=== PATIENT | male | born 1955 | race Caucasian/White ===

== ENCOUNTER → 2018-05-28 | Outpatient (CLI) | payer OTHER ==
--- NOTE | 2018-05-28 15:21 | MR ---
EXAMINATION TYPE: MR brain wo con DATE OF EXAM: 05/28/2018 COMPARISON: NONE HISTORY: Memory loss, autism TECHNIQUE: Multiplanar, multisequence images of the brain and brainstem is performed without IV contrast. FINDINGS: Diffusion weighted images demonstrate no evidence of a recent infarct or other diffusion ab normality. There is no extra-axial fluid collection. Moderate burden nonspecific white matter change is seen throughout the subcortical and periventricular white matter demonstrated as foci of T2/FLAIR hyperintensity with the largest in the left frontal lobe measuring 9 mm. This is measured on axial F LAIR fat-sat image 20. These are all supratentorial other than suspected mild gliosis within the amber . The ventricular system and cisternal spaces are normal in size and appearance. The brain volume is age appropriate. Midline structures demonstrate normal morphology. Incidental note is made of a partially empty sella turcica. The craniocervical junction appears within normal limits. The dural venous sinuses appear pa tent. The globes are intact. There is mild mucosal thickening of the ethmoid, maxillary, and frontal sinuses. The sphenoid sinuses are well aerated. There partial opacification of the left mastoid air c ells. Globes are intact. Major intracranial flow voids are maintained. Left vertebral artery is domin ant. IMPRESSION: 1. Moderate burden nonspecific white matter change. Given the distribution these are favored to repre sent sequela of vasculitis or chronic microangiopathy. 2. No evidence of acute infarct, midline shift or mass effect. 3. Mild pansinusitis with partial opacification of the left mastoid air cells. Correlate with left ma stoid tenderness to exclude mastoiditis.
== END | disposition home or self-care (01) ==
LOC: RADMRIMAIN 14:39
PROVIDERS: ATTEND Nurse Practitioner Acute Care
DX: R90.82 White matter disease, unspecified (principal)
CPT/HCPCS: 70551

== ENCOUNTER 2018-07-01 17:00 | Emergency (ER) | payer OTHER ==
[2018-07-01 17:39] VITALS: TEMP 97.8
[2018-07-01] MEDS ORDERED: LABETALOL 5 MG/ML VIAL MDV IVP STA (19:12)
--- NOTE | 2018-07-01 19:12 | ED ---
General Adult HPI - General Chief complaint: Recheck/Abnormal Lab/Rx Stated complaint: High BP Source: patient Mode of arrival: ambulatory Limitations: no limitations - History of Present Illness Initial comments: Dictation was produced using [employer] dictation software. please excuse any grammatical, word or spelling errors. Chief Complaint: 63-year-old male presents with elevated blood pressure. History of Present Illness: 23-year-old male presents with elevated blood pressure. Today he was at his neurologist office oriented elevated blood pressure. He was extracted come to the emergency department for further evaluation. Patient takes multiple medications for his blood pressure including lisinopril, Dyazide and Coreg. Patient has no other complaints at this time. He denies any pain complaints. Denies any neurologic symptoms. Patient has past medical history of recent discharge from the [facility]. He allegedly had a couple occasions from an overdose incident that happened in February. The ROS documented in this emergency department record has been reviewed and confirmed by me. Those systems with pertinent positive or negative responses have been documented in the HPI. All other systems are other negative and/or noncontributory. - Related Data Home Medications Medication Instructions Recorded Confirmed Aspirin EC [Ecotrin Low Dose] 81 mg PO DAILY 07/01/18 07/01/18 Carvedilol [Coreg] 6.25 mg PO BID 07/01/18 07/01/18 Cholecalciferol (Vitamin D3) 2,000 unit PO DAILY 07/01/18 07/01/18 [Vitamin D3] Folic Acid 1 mg PO DAILY 07/01/18 07/01/18 Hydrochlorothiazide 12.5 mg PO DAILY 07/01/18 07/01/18 LORazepam [Ativan] 0.5 mg PO TID PRN 07/01/18 07/01/18 Lisinopril [Prinivil] 20 mg PO BID 07/01/18 07/01/18 Melatonin 5 mg PO HS 07/01/18 07/01/18 Terazosin HCl 2 mg PO HS 07/01/18 07/01/18 Thiamine [Vitamin B-1] 100 mg PO DAILY 07/01/18 07/01/18 Venlafaxine HCl [Effexor XR] 150 mg PO DAILY 07/01/18 07/01/18 tiZANidine [Zanaflex] 2 mg PO HS 07/01/18 07/01/18 Allergies Allergy/AdvReac Type Severity Reaction Status Date / Time No Known Allergies Allergy Verified 07/01/18 19:03 Review of Systems ROS Statement: Those systems with pertinent positive or pertinent negative responses have been documented in the HPI. ROS Other: All systems not noted in ROS Statement are negative. Past Medical History Past Medical History: Hypertension Additional Past Medical History / Comment(s): carpal tunnel, overdose History of Any Multi-Drug Resistant Organisms: None Reported Past Psychological History: Anxiety, Depression Smoking Status: Current every day smoker Past Alcohol Use History: None Reported Past Drug Use History: None Reported General Exam - General Exam Comments Initial Comments: PHYSICAL EXAM: General Impression: Alert and oriented x3, not in acute distress HEENT: Normocephalic atraumatic, extra-ocular movements intact, pupils equal and reactive to light bilaterally, mucous membranes moist. Cardiovascular: Heart regular rate and rhythm, S1&S2 audible, no murmurs, rubs or gallops Chest: Lungs clear to auscultation bilaterally, no rhonchi, no wheeze, no rales Abdomen: Bowel sounds present, abdomen soft, non-tender, non-distended, no organomegaly Musculoskeletal: Pulses present and equal in all extremities, no peripheral edema Motor: Power 5/5 bilaterally, no focal deficits noted Neurological: CN II-XII grossly intact, no focal motor or sensory deficits noted Skin: Intact with no visualized rashes Psych: Normal affect and mood Limitations: no limitations Course Vital Signs 07/01/18 07/01/18 07/01/18 17:35 19:48 20:33 Temperature 97.8 F Pulse Rate 75 59 L 61 Respiratory 20 18 18 Rate Blood Pressure 211/120 223/117 219/112 O2 Sat by Pulse 98 99 99 Oximetry 07/01/18 07/01/18 21:22 21:41 Temperature Pulse Rate 54 L 62 Respiratory 18 16 Rate Blood Pressure 219/111 181/96 O2 Sat by Pulse 100 99 Oximetry Medical Decision Making - Medical Decision Making ED course: 63-year-old male presents here for elevated blood pressure. As upon arrival shows blood pressure 211/120, rest of vital signs within normal limits. Patient has past medical history of blood pressure problems. He takes medications twice daily. He only took his morning dose. Patient does not have any symptoms at this time. Clinical presentation consistent with asymptomatic hypertension.Laboratory evaluation obtained. Basic metabolic panel shows no elevated renal markers. Electrolytes are within normal limits. X-ray shows no acute processes. Patient is not complaining of any symptoms. He has an appointment with his primary care physician tomorrow. Patient given antihypertensive 1 dose here. Patient told to return to the emergency department should he expense any symptoms. Patient is otherwise clear for discharge for a symptomatic hypertension. He is told to keep his appointment with his PCP tomorrow. - Lab Data Result diagrams: 07/01/18 19:19 Lab Results 07/01/18 Range/Units 19:19 Sodium 142 (137-145) mmol/L Potassium 4.0 (3.5-5.1) mmol/L Chloride 106 (98-107) mmol/L Carbon Dioxide 27 (22-30) mmol/L Anion Gap 9 mmol/L BUN 18 (9-20) mg/dL Creatinine 0.91 (0.66-1.25) mg/dL Est GFR (CKD-EPI)AfAm >90 (>60 ml/min/1.73 sqM) Est GFR (CKD-EPI)NonAf >90 (>60 ml/min/1.73 sqM) Glucose 85 (74-99) mg/dL Calcium 9.5 (8.4-10.2) mg/dL Disposition Clinical Impression: Hypertension Disposition: HOME SELF-CARE Condition: Good Is patient prescribed a controlled substance at d/c from ED?: No Referrals: Douglas Zapien MD [Primary Care Provider] - 1-2 days Time of Disposition: 21:49
[2018-07-01 19:38] LABS: Anion Gap 9 mmol/L; Blood Urea Nitrogen 18 mg/dL (9-20); Calcium 9.5 mg/dL (8.4-10.2); Carbon Dioxide 27 mmol/L (22-30); Chloride 106 mmol/L (98-107); Glucose 85 mg/dL (74-99); Sodium 142 mmol/L (137-145)
[2018-07-01] MEDS ORDERED: hydrALAZINE HCL 20 MG/ML 1 ML VIAL IVP STA (20:51)
--- NOTE | 2018-07-01 20:58 | XR ---
EXAMINATION: XR chest 2V DATE AND TIME: 07/01/2018 7:57 PM CLINICAL INDICATION: Pain TECHNIQUE: PA and lateral COMPARISON: None. FINDINGS: The lungs are clear. The pleural spaces are negative. The cardiac silhouette is mildly enlarged. The remainder of the mediastinal silhouette is unremarkable. The skeletal structures and soft tissues are negative for acute findings. IMPRESSION: NO ACUTE PROCESS.
[2018-07-01 21:43] VITALS: BP 181/96; PULSE 62; RESP 16
== END 2018-07-01 22:15 | disposition home or self-care (01) ==
LOC: EC 17:00
DX: I10 Essential (primary) hypertension (principal); F32.9 Major depressive disorder, single episode, unspecified; F41.9 Anxiety disorder, unspecified; F17.200 Nicotine dependence, unspecified, uncomplicated; Z79.82 Long term (current) use of aspirin; Z79.899 Other long term (current) drug therapy
CPT/HCPCS: 36415; 93005; 80048; 71046; 99284; 96374; 96375; J0360